=== PATIENT | male | born 1990 | race Two or more races ===

== ENCOUNTER 2020-05-23 21:03 | Emergency (ER) | payer OTHER, MEDICAID ==
[~2020-05-23] VITALS: Ht 172.7 cm; Wt 145.0 kg
[2020-05-23] MEDS ORDERED: KETOROLAC 30MG/ML VIAL IV STA (23:18)
[2020-05-23 23:27] LABS: BASOPHILS % 1.1 % (0.0-2.0); EOSINOPHILS % 0.2 % (0.0-5.0); HEMATOCRIT. 37.4 % (42.0-52.0); HEMOGLOBIN. 13.3 g/dL (14.0-18.0); LYMPHOCYTES % 24.2 % (20.0-50.0); MEAN CORPUSCULAR HEMOGLOBIN 32.7 pg (28.0-32.0); MEAN CORPUSCULAR VOLUME 92.2 fL (80.0-94.0); MEAN PLATELET VOLUME 8.7 fl (7.4-10.4); MONOCYTES % 12.1 % (2.0-8.0); NEUTROPHILS % 62.4 % (40.0-76.0); PLATELET 224 x1000/uL (130-400); RED BLOOD CELL COUNT 4.06 mill/uL (4.7-6.1); RED CELL DISTRIBUTION WIDTH 13.9 % (11.6-14.6)
[2020-05-23] MEDS ORDERED: SODIUM CHLORIDE 0.9% 1,000 ML IV NR (23:29)
[2020-05-23 23:37] LABS: CHLORIDE 113 mEq/L (98-107)
[2020-05-23 23:41] LABS: ETHANOL BLOOD < 10 mg/dL
[2020-05-24 00:17] LABS: CLARITY URINE CLEAR (CLEAR); COLOR URINE DARK YELLOW (YELLOW); KETONES URINE TRACE (NEGATIVE); LEUKOCYTE ESTERASE URINE NEGATIVE (NEGATIVE); NITRITE URINE NEGATIVE (NEGATIVE); OCCULT BLOOD URINE TRACE (NEGATIVE); PROTEIN URINE TRACE (NEGATIVE); SPECIFIC GRAVITY URINE 1.041 (1.005-1.030)
[2020-05-24 00:30] LABS: *AMPHETAMINES SCREEN URINE PRESUMTIVE POSITIVE (NEGATIVE); *BARBITURATES SCREEN URINE NEGATIVE (NEGATIVE); *BENZODIAZEPINES SCREEN URINE NEGATIVE (NEGATIVE); *COCAINE SCREEN URINE NEGATIVE (NEGATIVE); CANNABINOID URINE SCREEN NEGATIVE (NEGATIVE); OPIATES URINE SCREEN NEGATIVE (NEGATIVE)
[2020-05-24 00:31] LABS: PHENCYCLIDINE URINE SCREEN NEGATIVE (NEGATIVE)
[2020-05-24 01:19] LABS: METHADONE URINE SCREEN NEGATIVE (NEGATIVE)
[2020-05-24 09:58] VITALS: BP 139/91
== END 2020-05-24 10:01 | disposition home or self-care (01) ==
LOC: ER 21:03
DX: R10.2 Pelvic and perineal pain (principal); R30.0 Dysuria; E87.6 Hypokalemia; F19.10 Other psychoactive substance abuse, uncomplicated; E11.9 Type 2 diabetes mellitus without complications; I10 Essential (primary) hypertension; F31.9 Bipolar disorder, unspecified; Z59.0 Homelessness
CPT/HCPCS: 36415; 76770; 76870; 80053; 80305; 80320; 81003; 83690; 85025; 93976; 96374; 99285; J1885; G0480

== ENCOUNTER 2024-03-01 20:05 | Emergency (ER) | payer OTHER, MEDICAID ==
[~2024-03-01] VITALS: Ht 160 cm; Wt 141.0 kg
[2024-03-01 20:49] VITALS: PULSE 95; RESP 18; O2SAT 97
[2024-03-01] MEDS: ALBUTEROL (0.083%) 2.5MG/3ML NEB HHN STA (20:49)
[2024-03-01 21:32] LABS: BASOPHILS % 0.5 % (0.0-2.0); EOSINOPHILS % 0.1 % (0.0-5.0); HEMATOCRIT. 34.6 % (42.0-52.0); HEMOGLOBIN. 11.6 g/dL (14.0-18.0); LYMPHOCYTES % 12.2 % (20.0-50.0); MEAN CORPUSCULAR HEMOGLOBIN 30.9 pg (28.0-32.0); MEAN CORPUSCULAR HGB CONC 33.5 g/dL (31.0-37.0); MEAN CORPUSCULAR VOLUME 92.1 fL (80.0-94.0); MEAN PLATELET VOLUME 9.2 fl (7.4-10.4); MONOCYTES % 11.4 % (2.0-8.0); NEUTROPHILS % 75.8 % (40.0-76.0); PLATELET 208 x1000/uL (130-400); RED BLOOD CELL COUNT 3.76 mill/uL (4.7-6.1); RED CELL DISTRIBUTION WIDTH 13.5 % (11.6-14.6); WHITE BLOOD COUNT 13.1 x1000/uL (4.5-11.0)
[2024-03-01 21:48] LABS: ALANINE AMINOTRANSFERASE < 7 IU/L (10-49); ALBUMIN 2.8 g/dL (3.2-4.8); ASPARTATE AMINOTRANSFERASE 11 IU/L (<34); BILIRUBIN TOTAL 0.8 mg/dL (0.1-1.0); CARBON DIOXIDE 17 mEq/L (21-32); CHLORIDE 114 mEq/L (98-107); CREATININE 1.3 mg/dL (0.6-1.3); GLUCOSE 131 mg/dL (70-105); SODIUM 141 mEq/L (136-145); TROPONIN I HIGH SENSITIVITY 7 ng/L (3.0-53); UREA NITROGEN BLOOD 15 mg/dL (9-23)
[2024-03-01 22:04] LABS: PROTEIN TOTAL 5.2 g/dL (6.0-8.3)
[2024-03-01 22:06] LABS: CALCIUM 5.8 mg/dL (8.7-10.4); POTASSIUM 2.1 mEq/L (3.5-5.1)
[2024-03-01] MEDS: LORAZEPAM 2MG/ML INJ IV ONE (22:21)
[2024-03-01] MEDS: MAGNESIUM 2 G PREMIX 50 ML IV ONE (23:22)
[2024-03-01] MEDS: POTASSIUM CHLORIDE 20MEQ/PACKET PO ONE (23:22)
[2024-03-02 07:15] VITALS: TEMP 98.7
[2024-03-02 07:30] VITALS: BP 109/60; PULSE 81; RESP 19
== END 2024-03-02 08:30 | disposition left against medical advice (07) ==
LOC: ER 20:05
DX: E87.6 Hypokalemia (principal); J45.909 Unspecified asthma, uncomplicated; F31.9 Bipolar disorder, unspecified; E11.9 Type 2 diabetes mellitus without complications; I10 Essential (primary) hypertension
CPT/HCPCS: 99285; 96365; 71045; 96375; 80053; 82962; 83735; 85025; 84484; 36415; 94640; 93005; J2060; J3475